=== PATIENT | male | born 1980 | race Caucasian/White ===

== ENCOUNTER 2018-08-30 15:41 | Emergency (ER) | payer SELFPAY ==
[2018-08-30 15:53] VITALS: BP 109/66; PULSE 82; RESP 16; TEMP 37; O2SAT 98
[2018-08-30] MEDS: Cephalexin 500 MG CAP PO (17:05)
[2018-08-30] MEDS: Sulfameth/Trimeth DS TAB 1 TAB PO (17:05)
--- NOTE | 2018-08-30 17:07 | NUR.NOTE ---
patient medicated per N/P order Nursing Note:
--- NOTE | 2018-08-30 17:27 | ED.GENADUL_ITS ---
Discharge Plan Disposition Patient Disposition: HOME Condition: Good Discharge Details Chief Complaint: Cellulitis Clinical Impression: Cellulitis of forearm, left Reason For Visit: infected arm Primary Care Provider: None,None ED Provider: Yousif Honeycutt Home Meds and New Rx's Prescriptions: New sulfamethoxazole-trimethoprim [Bactrim DS] 800-160 mg tablet 2 tab PO DAILY 10 Days Qty: 20 RF: 0 cephalexin 500 mg capsule 500 mg PO QID Qty: 40 RF: 0 Continue methadone 10 mg/mL Solution 85 mg RF: 0 Discharge Instructions Instructions: Cellulitis (ED) Additional Instructions: Please take your antibiotics as prescribed and until fully complete, do not save any antibiotics. Watch for any rapid signs of worsening condition such as fever chills, vomiting, significant increase in pain or spread of redness. If these occur he should return immediately to the emergency department. Otherwise you should follow-up with the emergency department or your primary care provider for reassessment in the next 48 hours. You may continue to use [id number] acetaminophen or Motrin as needed for pain. Referrals: Kyle Meléndez [ NON-[facility] STAFF PHYSICIAN] - 2 days (for reassessment) Discharge Data Discharge Date/Time-TO BE ENTERED AT DEPARTURE: 08/30/18 17:56 Medical Decision Making Left forearm cellulitis. Significant induration. Patient started on Keflex Bactrim and encouraged to return in 48 hours to emergency department for reevaluation or if able to get a primary care follow-up in 48 hours to follow- up with PCP. Patient otherwise stable, afebrile with normal vital signs I do not feel that labs are warranted at this time. Bedside ultrasound utilized to visualize tissue and shows what I interpret as significant tissue edema without significant findings of abscess. Patient including states understanding to return and to take antibiotics as prescribed. After discussion of diagnosis and plan of care patient has no further needs, questions, or concerns and states clear understanding to return to the emergency department for any worsening symptoms. HPI General Mode of arrival: ambulatory . Date/Time Provider Initiated Documentation: 08/30/18 16:15 . Limitations to Documentation: no limitations . Information obtained by: patient and RN notes reviewed . History of Present Illness 38 year old M presents to the emergency department with the chief complaint of left arm infection, described as severe, with intensity rated at 9. Quality is described as aching and sharp, and is localized to the left and upper extremity. Patient started experiencing this day(s) (4) and it has been constant. No relieving factors improve symptom(s), No exacerbating factors reported . Patient notes no other symptoms.. Patient did receive the following treatments prior to arrival, none Related Data Home Medications Medication Instructions Recorded Confirmed cephalexin 500 mg PO QID #40 cap 08/30/18 methadone 85 mg 08/30/18 sulfamethoxazole-trimethoprim 2 tab PO DAILY 10 Days #20 tab 08/30/18 [Bactrim DS] Previous Rx's Medication Instructions Recorded cephalexin 500 mg PO QID #40 cap 08/30/18 sulfamethoxazole-trimethoprim 2 tab PO DAILY 10 Days #20 tab 08/30/18 [Bactrim DS] Allergies Allergy/AdvReac Type Severity Reaction Status Date / Time No Known Allergies Allergy Unverified 08/30/18 15:57 General Stated Complaint: Cellulitis HAILEY: 3 Review of Systems Constitutional Denies body ache(s), Denies chills and Denies fever(s) Cardiovascular Denies chest pain and Denies dyspnea Respiratory Denies dyspnea Gastrointestinal Denies abdominal pain, Denies nausea and Denies vomiting Integumentary/Breasts Reports as per HPI, Reports erythema and Reports skin pain Neurologic Denies confusion and Denies sensory deficit Psychiatric Denies confusion [facility] Social History Smoking/Tobacco Use Status: Current every day Social History Smoking/Tobacco Use Status: Current every day Exam Const General: cooperative, no acute distress and not ill appearing Orientation: alert, awake and oriented x3 HENMT Mouth: moist mucous membranes Resp Effort & Inspection: normal respiratory effort, able to speak in complete sentences and no respiratory distress Cardio Rate: regular rate Rhythm: regular rhythm Neuro General: alert, awake, oriented x3, moves all extremities and no focal motor deficits Sensory Exam: no sensory deficits noted Extrem General: normal exam except as noted Left upper extremity: elbow/forearm Details: abnormal to inspection Details: erythema (Significant erythema and induration noted to dorsal aspect of forearm. No fluctuance noted) Course Vital Signs Temperature 37 C 08/30/18 15:53 Pulse 82 08/30/18 15:53 Respiratory Rate 16 08/30/18 15:53 Blood Pressure 109/66 12/12/18 15:53 Pulse Oximetry 98 12/12/18 15:53 Temperature 37 C 08/30/18 15:53 Temperature Source Temporal Artery Scan 08/30/18 15:53 Pulse 82 08/30/18 15:53 Respiratory Rate 16 08/30/18 15:53 Blood Pressure 109/66 08/30/18 15:53 Blood Pressure Position Sitting 08/30/18 15:53 Pulse Oximetry 98 08/30/18 15:53 Oxygen Delivery Method Room Air 08/30/18 15:53 Oxygen Flow Rate 0 08/30/18 15:53 Pain Level 9 08/30/18 15:53
== END 2018-08-30 17:56 | disposition home or self-care (01) ==
LOC: ER 17:54
PROVIDERS: Emergency Provider Nurse Practitioner Family
DX: L03.114 Cellulitis of left upper limb (principal)
CPT/HCPCS: 99283

== ENCOUNTER 2018-09-03 16:32 | Emergency (ER) | payer OTHER, SELFPAY ==
[2018-09-03 16:45] VITALS: BP 140/70; PULSE 93; RESP 18; TEMP 36.3; O2SAT 99
--- NOTE | 2018-09-03 17:21 | W.ED.GENAD ---
Discharge Plan Disposition Patient Disposition: AGAINST MEDICAL ADVICE Discharge Details Chief Complaint: Cellulitis Clinical Impression: Abscess of forearm, left Reason For Visit: arm swelling Primary Care Provider: None,None ED Provider: Tejas Palmer Home Meds and New Rx's Prescriptions: No Action methadone 10 mg/mL Solution 85 mg RF: 0 sulfamethoxazole-trimethoprim [Bactrim DS] 800-160 mg tablet 2 tab PO DAILY 10 Days Qty: 20 RF: 0 cephalexin 500 mg capsule 500 mg PO QID Qty: 40 RF: 0 Discharge Instructions Instructions: Against Medical Advice (ED) Additional Instructions: You are leaving against medical advice. Please return to the ER at any time for further care. Referrals: Irish Olsen MD [ [facility] STAFF PHYSICIAN] - Medical Decision Making 38-year-old male prior IV drug user, recently diagnosed with cellulitis of his left forearm and being treated with Bactrim and Keflex, returns with focal swelling and fluctuance. Afebrile and nonseptic appearing. No findings of compartment syndrome. Neurovasc intact distally. Bedside [id number] ultrasound was performed by me: Large deep abscess of the proximal to mid left forearm with some loculations. Given the depth and size of abscess, I contacted general surgery to evaluate the patient. Dr. Emery noted that she would evaluate as soon as possible but was performing a surgical procedure. I informed the patient that Dr. Emery would begin to evaluate as soon as possible but it would likely be delayed for an hour. 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 I specifically explained that he may have life threatening or lifestyle modifying disease that would worsen should he leave now AGAINST MEDICAL ADVICE. I explained that the quickest way to get this treated would be to wait for Dr. Emery. Patient verbalized understanding of my concern. Patient has decision-making capacity. He refused to wait for further treatment but noted that he would return as soon as possible tonight. I called the patient after he left and advised him to maintain n.p.o. status in case surgery is needed tonight. HPI General Mode of arrival: ambulatory. Date/Time Provider Initiated Documentation: 09/03/18 17:00. Limitations to Documentation: no limitations. Information obtained by: patient. HPI Narrative: 38yo m with history of prior IV drug use now on methadone here with chief complaint of swollen forearm. Patient was here in the emergency department on 08/30/2018 with chief complaint of left arm infection. Significant induration was noted. Bedside [id number]-[id number] ultrasound did not reveal any fluid collection. He was discharged on Keflex and Bactrim which she has been taking as prescribed. Over the past 4 days, the redness has decreased but he is noticed more focal swelling localized to medial proximal forearm. Area feels more full than it did a few days ago. It is tender to the touch. He denies associated numbness or tingling of the hand. No fevers. Related Data Home Medications Medication Instructions Recorded Confirmed cephalexin 500 mg PO QID #40 cap 08/30/18 09/03/18 methadone 85 mg 08/30/18 sulfamethoxazole-trimethoprim 2 tab PO DAILY 10 Days #20 tab 08/30/18 09/03/18 [Bactrim DS] Previous Rx's Medication Instructions Recorded cephalexin 500 mg PO QID #40 cap 08/30/18 sulfamethoxazole-trimethoprim 2 tab PO DAILY 10 Days #20 tab 08/30/18 [Bactrim DS] Allergies Allergy/AdvReac Type Severity Reaction Status Date / Time No Known Allergies Allergy Unverified 08/30/18 15:57 General Stated Complaint: Cellulitis HAILEY: 3 Review of Systems Constitutional Denies chills and Denies fever(s) Integumentary/Breasts Reports as per HPI Neurologic Reports as per [facility] Medical History IVDU (intravenous drug user) (Resolved) Osteomyelitis (Resolved) Social History Smoking/Tobacco Use Status: Current every day Exam Const General: cooperative and no acute distress [facility] Mouth: moist mucous membranes Eyes Conjunctivae: normal conjunctivae Sclera: normal sclerae Cardio Rate: regular rate and not tachycardic Rhythm: regular rhythm Skin General skin exam: erythema (left forearm improved significantly from piror marked border) Neuro General: alert, awake, oriented x3 and tone normal Extrem Left upper extremity: elbow/forearm (proximal to mid forearm with focal swelling medially, tender and fluctuant), wrist (pain in forearm with hyperextension ) and hand Details: neurosensory exam normal Course Vital Signs Temperature 36.3 C L 09/03/18 16:45 Pulse 93 H 09/03/18 16:45 Respiratory Rate 18 09/03/18 16:45 Blood Pressure 140/70 09/03/18 16:45 Pulse Oximetry 99 09/03/18 16:45 Temperature 36.3 C L 09/03/18 16:45 Temperature Source Temporal Artery Scan 09/03/18 16:45 Pulse 93 H 09/03/18 16:45 Respiratory Rate 18 09/03/18 16:45 Respiratory Effort Accessory Muscle Use 09/03/18 16:48 Blood Pressure 140/70 09/03/18 16:45 Blood Pressure Position Supine 09/03/18 16:45 Pulse Oximetry 99 09/03/18 16:45 Oxygen Delivery Method Room Air 09/03/18 16:45 Oxygen Flow Rate 0 09/03/18 16:45 Pain Level 6 09/03/18 16:45
--- NOTE | 2018-09-03 17:44 | ED.GENADUL_ITS ---
Discharge Plan Disposition Patient Disposition: AGAINST MEDICAL ADVICE Discharge Details Chief Complaint: Cellulitis Clinical Impression: Abscess of forearm, left Reason For Visit: arm swelling Primary Care Provider: None,None ED Provider: Tejas Palmer Home Meds and New Rx's Prescriptions: No Action methadone 10 mg/mL Solution 85 mg RF: 0 sulfamethoxazole-trimethoprim [Bactrim DS] 800-160 mg tablet 2 tab PO DAILY 10 Days Qty: 20 RF: 0 cephalexin 500 mg capsule 500 mg PO QID Qty: 40 RF: 0 Discharge Instructions Instructions: Against Medical Advice (ED) Additional Instructions: You are leaving against medical advice. Please return to the ER at any time for further care. Referrals: Irish Olsen MD [ [facility] STAFF PHYSICIAN] - Medical Decision Making 38-year-old male prior IV drug user, recently diagnosed with cellulitis of his left forearm and being treated with Bactrim and Keflex, returns with focal swelling and fluctuance. Afebrile and nonseptic appearing. No findings of compartment syndrome. Neurovasc intact distally. Bedside ojbkb-[id number]-lecc ultrasound was performed by me: Large deep abscess of the proximal to mid left forearm with some loculations. Given the depth and size of abscess, I contacted general surgery to evaluate the patient. Dr. Emery noted that she would evaluate as soon as possible but was performing a surgical procedure. I informed the patient that Dr. Emery would begin to evaluate as soon as possible but it would likely be delayed for an hour. 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 I specifically explained that he may have life threatening or lifestyle modifying disease that would worsen should he leave now AGAINST MEDICAL ADVICE. I explained that the quickest way to get this treated would be to wait for Dr. Emery. Patient verbalized understanding of my concern. Patient has decision- making capacity. He refused to wait for further treatment but noted that he would return as soon as possible tonight. I called the patient after he left and advised him to maintain n.p.o. status in case surgery is needed tonight. HPI General Mode of arrival: ambulatory . Date/Time Provider Initiated Documentation: 09/03/18 17:00 . Limitations to Documentation: no limitations . Information obtained by: patient . HPI Narrative: 38yo m with history of prior IV drug use now on methadone here with chief complaint of swollen forearm. Phyllis ent was here in the emergency department on 08/30/2018 with chief complaint of left arm infection. Significant induration was noted. Bedside xtwaf-gu-zzhi ultrasound did not reveal any fluid collection. He was discharged on Keflex and Bactrim which she has been taking as prescribed. Over the past 4 days, the redness has decreased but he is noticed more focal swelling localized to medial proximal forearm. Area feels more full than it did a few days ago. It is tender to the touch. He denies associated numbness or tingling of the hand. No fevers. Related Data Home Medications Medication Instructions Recorded Confirmed cephalexin 500 mg PO QID #40 cap 08/30/18 09/03/18 methadone 85 mg 08/30/18 sulfamethoxazole-trimethoprim 2 tab PO DAILY 10 Days #20 tab 08/30/18 09/03/18 [Bactrim DS] Previous Rx's Medication Instructions Recorded cephalexin 500 mg PO QID #40 cap 08/30/18 sulfamethoxazole-trimethoprim 2 tab PO DAILY 10 Days #20 tab 08/30/18 [Bactrim DS] Allergies Allergy/AdvReac Type Severity Reaction Status Date / Time No Known Allergies Allergy Unverified 08/30/18 15:57 General Stated Complaint: Cellulitis HAILEY: 3 Review of Systems Constitutional Denies chills and Denies fever(s) Integumentary/Breasts Reports as per HPI Neurologic Reports as per [facility] Medical History IVDU (intravenous drug user) (Resolved) Osteomyelitis (Resolved) Social History Smoking/Tobacco Use Status: Current every day Exam Const General: cooperative and no acute distress [facility] Mouth: moist mucous membranes Eyes Conjunctivae: normal conjunctivae Sclera: normal sclerae Cardio Rate: regular rate and not tachycardic Rhythm: regular rhythm Skin General skin exam: erythema (left forearm improved significantly from piror marked border) Neuro General: alert, awake, oriented x3 and tone normal Extrem Left upper extremity: elbow/forearm (proximal to mid forearm with focal swelling medially, tender and fluctuant), wrist (pain in forearm with hyperextension ) and hand Details: neurosensory exam normal Course Vital Signs Temperature 36.3 C L 09/03/18 16:45 Pulse 93 H 09/03/18 16:45 Respiratory Rate 18 09/03/18 16:45 Blood Pressure 140/70 09/03/18 16:45 Pulse Oximetry 99 09/03/18 16:45 Temperature 36.3 C L 09/03/18 16:45 Temperature Source Temporal Artery Scan 09/03/18 16:45 Pulse 93 H 09/03/18 16:45 Respiratory Rate 18 09/03/18 16:45 Respiratory Effort Accessory Muscle Use 09/03/18 16:48 Blood Pressure 140/70 09/03/18 16:45 Blood Pressure Position Supine 09/03/18 16:45 Pulse Oximetry 99 09/03/18 16:45 Oxygen Delivery Method Room Air 09/03/18 16:45 Oxygen Flow Rate 0 09/03/18 16:45 Pain Level 6 09/03/18 16:45
== END 2018-09-03 17:27 | disposition left against medical advice (07) ==
LOC: ER 17:29
PROVIDERS: Emergency Provider Student in an Organized Health Care Education/Training Program
DX: L02.414 Cutaneous abscess of left upper limb (principal); Z53.29 Procedure and treatment not carried out because of patient's decision for other reasons
CPT/HCPCS: 99282

== ENCOUNTER 2018-09-03 20:40 | Emergency (ER) | payer OTHER, SELFPAY ==
[2018-09-03 20:44] VITALS: BP 141/74; PULSE 89; RESP 18; TEMP 37.1; O2SAT 99
--- NOTE | 2018-09-03 20:47 | ED.GENADUL_ITS ---
Discharge Plan Disposition Patient Disposition: HOME Condition: Good Discharge Details Chief Complaint: Recheck Clinical Impression: Abscess of arm, left Primary Care Provider: None,None ED Provider: Eric Hines Home Meds and New Rx's Prescriptions: No Action methadone 10 mg/mL Solution 85 mg RF: 0 sulfamethoxazole-trimethoprim [Bactrim DS] 800-160 mg tablet 2 tab PO DAILY 10 Days Qty: 20 RF: 0 cephalexin 500 mg capsule 500 mg PO QID Qty: 40 RF: 0 Discharge Instructions Instructions: Abscess (ED) Additional Instructions: Please continue taking your antibiotic that was prescribed to you. Take the Keflex and the Bactrim every day as directed. Please contact Dr. Nathan's offic e for close follow-up in the next 48 hours. If you notice any worsening of your symptoms, or any new symptoms such as vomiting, diarrhea, fever, chills, pain in your arm, and shortness of breath, chest pain, numbness, weakness, or fainting , please return immediately to the emergency department for reevaluation. Please follow up with your primary care provider as soon as possible for reassessment and reevaluation. As always, it was a pleasure participating in your medical care today. Dr. Nathan's Referrals: Anuj Moore DO [ [facility] STAFF PHYSICIAN] - Medical Decision Making This is a pleasant 38-year-old male who presents for evaluation of an abscess on the patient's left forearm. He has been on Keflex and Bactrim on an outpatient basis, but has had notable improvement of the redness and notable worsening of the swelling. He has been taking the medication as directed. Physical exam now demonstrates no signs of compartment syndrome however he demonstrates a notable fluid collection that is 11 x 8 cm on his left dominant forearm. Because of the size as well as the notable depth with no evidence of a fluctuant head, we did contact surgery for evaluation. They will come evaluate the patient here in the emergency department. We will keep him n.p.o. at this time. The patient's tetanus is up-to-date. 11:40 PM Patient's laboratory workup has returned and does show evidence of mild leukocytosis with a white count of 13.3, however no evidence of bandemia. The remainder of his laboratory workup is normal. Vital signs remain consistently stable with no tachycardia or fever. We did have Dr. Emery, and assessed the patient. She agreed to drain the abscess. The patient had the abscess incised and drained by Dr. Emery, a notable amount of purulent discharge was removed. Wound fluid cultures were sent. Dr. Emery did place a drain, and wrapped it. I discussed changing antibiotics, and Dr. Emery recommends at this time continuing the Bactrim and Keflex as the patient has had notable improvement of the redness on this, just not improvement of the abscess itself. With incision and drainage being the primary modality for treatment of this I think maintaining his current antibiotics is certainly reasonable. With his reassuring vital signs patient will be discharged home with extremely close follow-up with Dr. Nathan on an outpatient basis. Patient's pain is well controlled and he is feeling much better after the drainage. We discussed red flags for which to immediately re turn and the patient understands. I have extensively reviewed the treatment plan and discharge instructions with the patient. I have addressed all patient concerns at this time. The patient was made aware of what symptoms to monitor for that would warrant a return to the emergency department. Discussed the plan with the patient, they demonstrate verbal understanding and agreement with our assessment and plan at this time. HPI General Date/Time Provider Initiated Documentation: 09/03/18 20:45 . HPI Narrative: This is a 38-year-old man with history of prior IV drug use now on methadone here with chief complaint of a left swollen forearm. He is left-hand dominant. Patient was here in the emergency department on 08/30/2018 with chief complaint of left arm infection. Significant induration was noted. Bedside zgnah-zc-cuha ultrasound did not reveal any fluid collection. He was discharged on Keflex and Bactrim which she has been taking as prescribed. Over the past 4 days, the redness has decreased but he is noticed more focal swelling localized to medial proximal forearm. Area feels more full than it did a few days ago. It is tender to the touch. The patient was here earlier today but left AGAINST MEDICAL ADVICE because he was unable to wait for the surgeon due to a need for his to have a car. His come back now has he has been able to drop the car off with his . He does admit to one episode of very brief tingling in his fingers, however this is resolved and is no longer present. He denies any systemic fevers or chills. Patient does have a history of IV drug use, and states that he usually only uses once per month, and always uses in his right arm because he is left arm dominant. The patient denies any trauma, cuts, or recent dental procedures. He denies any other complaints at this time. He denies any modifying factors. Related Data Home Medications Medication Instructions Recorded Confirmed cephalexin 500 mg PO QID #40 cap 08/30/18 09/03/18 methadone 85 mg 08/30/18 sulfamethoxazole-trimethoprim 2 tab PO DAILY 10 Days #20 tab 08/30/18 09/03/18 [Bactrim DS] Previous Rx's Medication Instructions Recorded cephalexin 500 mg PO QID #40 cap 08/30/18 sulfamethoxazole-trimethoprim 2 tab PO DAILY 10 Days #20 tab 08/30/18 [Bactrim DS] Allergies Allergy/AdvReac Type Severity Reaction Status Date / Time No Known Allergies Allergy Unverified 09/03/18 20:51 General HAILEY: 3 Review of Systems Review of Systems All systems reviewed & are unremarkable except as noted in HPI and below PFSH Medical History IVDU (intravenous drug user) (Resolved) Osteomyelitis (Resolved) Social History Smoking/Tobacco Use Status: Current every day Exam Narrative Exam Narrative: 1.Const: Well-nourished, Well-developed, appearing stated age 2.Eyes: PERRL, no conjunctival injection, and symmetrical lids. 3.ENT: Atraumatic external nose and ears. Moist MM. Neck: Symmetric, trachea midline, No thyromegaly. 4.CVS: +S1/S2, No murmurs or gallops. Peripheral pulses 2+ and equal in all extremities. Brisk capillary refill in all extremities. 5.RESP: Unlabored respiratory effort. Clear to auscultation bilaterally. No wheezes rales or rhonchi 6.GI: Soft, Nontender/Nondistended, No hepatosplenomegaly. No guarding or rebound. 7.MSK: Normocephalic/Atraumatic, Extremities w/o deformity. No cyanosis or clubbing, symmetrically palpable radial and ulnar pulses. Capillary refill <2 seconds to all digits. Intact sensation to light touch of the radial, median and ulnar nerves demonstrated by testing in the dorsal web space of the thumb, the distal palmar aspect of the index finger, and the lateral surface of the fifth finger. 2 point discrimination intact to 5mm (up to 6mm can be normal in digits 3-5) of discrimination in the affected digit. Intact motor function of the radial, median and ulnar nerves demonstrated by strength of extension of the isolated distal joint of the index finger, hand ski tow operator, and spreading of the 2nd through 5th digits. Intact recurrent median nerve as demonstrated by ability to move thumb fully through opposition, abduction and flexion. Worsening of forearm pain with flexion and extension of the wrist. The patient's left forearm does demonstrate notable induration over the forearm itself, minimal redness. No focal point though. Some fluctuance is palpable throughout, be dside portable limited ultrasound does demonstrate an area of fluid collection 11 cm long by 8 cm wide in his forearm. Palpation of the forearm demonstrates still softness of the compartments. No clinical evidence of compartment syndrome at this time. No evidence of track foreman or other lesions. 8.Skin: Warm, Dry. No rashes or lesions. 9.Neuro: room service supervisor II-XII grossly intact. Sensation grossly intact, no focal neurologic deficits. 10.Psych: (AAO) x3. Appropriate mood and affect
[2018-09-03 21:37] LABS: Abs Immature Grans 0.02 k/cumm (0.0-0.09); Absolute Basophil Count 0.04 k/cumm (0.0-0.2); Absolute Neutrophil Count 8.73 k/cumm (1.2-6.7); Basophils % 0.3; Eosinophils % 1.9; HCT 35.8 % (40.0-50.0); HGB 12.2 g/dL (13.5-17.5); Immature Grans % 0.1; Lymphocytes % 21.1; Mean Corp. HGB Concentration 34.1 g/dL (32.0-36.0); Mean Corpuscular Hemoglobin 29.4 pg (27.0-33.0); Mean Corpuscular Volume 86.3 fL (80-95); Mean Platelet Volume 9.7 fL (8.0-11.0); Monocytes % 11.4; Neutrophils % 65.2; Platelet Count 246 x1000/uL (130-400); RBC 4.15 m/cumm (4.50-6.00); RBC Distribution Width 13.6 % (11.8-14.1); White Blood Cell Count 13.39 k/cumm (4.4-10.8)
[2018-09-03 21:41] LABS: Absolute Eosinophil Count 0.25 k/cumm (0.0-0.7); Absolute Lymphocyte Count 2.83 k/cumm (1.2-3.4); Absolute Monocyte Count 1.53 k/cumm (0.11-0.7)
[2018-09-03] MEDS: ACETAMINOPHEN 1,000 MG/100 ML BTL 400 MG IVPB (21:41)
[2018-09-03] MEDS: Ketorolac 30 MG/ML VIAL IVP (21:42)
[2018-09-03 21:53] LABS: Diff Comment Diff Reviewed; RBC Morphology Normal
[2018-09-03 21:55] LABS: ALT 26 U/L (12-78); AST 20 U/L (15-37); Albumin 3.5 g/dL (3.4-5.0); Alkaline Phosphatase 72 U/L (46-116); Anion Gap 8.2 mmol/L (3-11); BUN 11 mg/dL (7-18); Bilirubin, Total 0.3 mg/dL (0.2-1.0); CO2 25.8 mmol/L (21.0-32.0); CREATININE 0.81 mg/dL (0.70-1.30); Calcium 8.4 mg/dL (8.5-10.1); Chloride 99 mmol/L (98-107); Glucose 92 mg/dL (70-100); Potassium 3.9 mmol/L (3.5-5.1); Sodium 133 mmol/L (136-145); Total Protein 7.4 g/dL (6.4-8.2)
[2018-09-03] MEDS: Lidocaine 1% Multi-Dose 50 ML VIAL (23:21)
[2018-09-03 23:52] VITALS: BP 127/76; PULSE 70; RESP 16; TEMP 37.1; O2SAT 99
--- NOTE | 2018-09-03 23:53 | NUR.NOTE ---
Nursing Note: assist provider, Dr. Emery with I&D of left forearm. Consents were signed in room prior to procedure.
--- NOTE | 2018-09-03 23:57 | W.SURGCON ---
Date of service: 09/03/18 Time of Service: 23:57 Assessment and Plan (1) Abscess of left forearm: Current visit: Yes Status: Acute 38 y/o male with a left forearm abscess on exam and bedside ultrasound in the ED. Edema of surrounding soft tissue also noted on ultrasound. Discussed with patient needle aspiration to confirm abscess vs. seroma. Patient agreeable and verbal consent obtained. Skin prepped with alcohol pad and needle aspiration with 22 gauge needle performed over most fluctuant area. Three cc of cream-colored pus aspirated and sent for culture. We then discussed proceeding with incision and drainage under local anesthesia. Risks, benefits, and alternatives discussed with patient and informed consent obtained prior to proceeding. Bloody fluid mixed with pus was drained. The cavity was noted to track ~ 4 cm deep. Visible soft tissue in the wound appeared viable. Cavity copiously irrigated with saline until the return was clear. A quarter inch Yuliya drain was inserted and secured to the skin edges with interrupted 2-0 nylon. Dry gauze dressing applied. Patient tolerated well with no immediate complications. See procedure notes. Recommend finish prescribed course of Keflex and Bactrim. Await wound cultures. Follow-up with surgery this week. Patient seen and discussed with Dr. Hines in the ED. History of Present Illness Chief Complaint: Left forearm abscess Narrative: 38 y/o male who had been seen in the ED at [facility] on 08/30/18 for left forearm cellulitis. Patient notes that he had redness and swelling of his left forearm which began ~ 10 days ago and progressively worsened. Bedside ultrasound in the ED on 08/30/18 demonstrated soft tissue edema but no abscess. He was discharged on Keflex and Bactrim and instructed to follow-up in 48 hours. Patient denies any fevers or chills. He denies any h/o injury, bug bite, or IVDA in that arm. 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 Redness significantly improved on oral antibiotics but swelling and pain persisted. Ultrasound in the ED today demonstrated a large fluid collection consistent with abscess that appeared to be deep. Surgical consultation requested for I&D. Review of Systems Review of Systems All systems reviewed & are unremarkable except as noted in HPI and below Constitutional Denies chills and Denies fever(s) Cardiovascular Denies chest pain and Denies rapid heart rate Integumentary/Breasts Reports erythema, Reports skin pain and Reports skin swelling [facility] Medical History IVDU (intravenous drug user) (Resolved) Osteomyelitis (Resolved) Social History Smoking/Tobacco Use Status: Current every day Exam Const General: cooperative, comfortable, no acute distress and well developed Nutritional Appearance: well nourished Orientation: alert and oriented x3 HENMT Head: normocephalic and atraumatic Resp Effort & Inspection: normal respiratory effort and able to speak in complete sentences Skin General skin exam: erythema (mild lateral left forearm), fluctuance (lateral left forearm) and induration (lateral left forearm) Neuro General: alert and oriented x3 Speech: speech normal Gait: normal gait Psych Appearance: grossly normal Mental Status: mental status grossly normal Mood: congruent mood Affect: normal affect Results Last Vital Signs Temp 37.1 C 09/03/18 23:52 Pulse 70 09/03/18 23:52 Resp 16 09/03/18 23:52 BP 127/76 09/03/18 23:52 Pulse Ox 99 09/03/18 23:52 Labs : 09/03/18 21:15 09/03/18 21:15 Laboratory Results - last 24 hr 09/03/18 09/03/18 21:15 21:15 WBC 13.39 H RBC 4.15 L Hgb 12.2 L Hct 35.8 L MCV 86.3 MCH 29.4 MCHC 34.1 RDW 13.6 Plt Count 246 MPV 9.7 Immature Gran % 0.1 Neutrophils % 65.2 Lymphocytes % 21.1 Monocytes % 11.4 Eosinophils % 1.9 Basophils % 0.3 Absolute Neutrophils 8.73 H Absolute Lymphocytes 2.83 Absolute Monocytes 1.53 H Absolute Eosinophils 0.25 Absolute Basophils 0.04 Differential Comment Diff reviewed RBC Morphology Normal Sodium 133 L Potassium 3.9 Chloride 99 Carbon Dioxide 25.8 Anion Gap 8.2 BUN 11 Creatinine 0.81 Estimated GFR/1.73 m2 >= 60.00 Glucose 92 Calcium 8.4 L Total Bilirubin 0.3 AST 20 ALT 26 Alkaline Phosphatase 72 Total Protein 7.4 Albumin 3.5 Procedures Abscess I/D Site: upper extremity (left forearm) Side (if applicable): left Sedation/analgesia: none Anesthetic used: lidocaine 1% (7 cc) Technique: needle aspiration and incised with #11 blade Amount of fluid (mL): 10 Irrigation: Yes (saline) Packing used?: yuliya drain (1/4 [place] drain, sutured in place with 2-0 nylon)
== END 2018-09-03 23:53 | disposition home or self-care (01) ==
PROVIDERS: Emergency Provider Student in an Organized Health Care Education/Training Program
DX: L02.414 Cutaneous abscess of left upper limb (principal)
CPT/HCPCS: 10060; 36415; 80053; 87040; 87077; 96361; 96374; 96375; 99253; 99284; 85025; 87070; 87186; 87205; J0131; J1885

== ENCOUNTER 2020-09-04 20:16 | Outpatient (REF) | payer MEDICAID, SELFPAY ==
[2020-09-04 21:10] LABS: HCT 45.4 % (40.0-50.0); HGB 14.7 g/dL (13.5-17.5); MCH 30.1 pg (27.0-33.0); MCHC 32.4 % (32.0-36.0); MPV 9.6 fL (8.0-11.0); Platelet Count 377 10^3/uL (130-400); RBC 4.88 10^6/uL (4.36-5.78); RDW 12.1 % (11.8-14.1); WBC 10.62 10^3/uL (4.4-10.8)
[2020-09-04 21:29] LABS: ALT 56 U/L (16-63); AST 31 U/L (15-37); Alkaline Phosphatase 108 U/L (46-116); Anion Gap 5.7 mmol/L (3-11); BUN 13 mg/dL (7-18); Bilirubin, Total 0.2 mg/dL (0.2-1.0); CO2 29.3 mmol/L (21.0-32.0); CREATININE 0.85 mg/dL (0.70-1.30); Calcium 8.7 mg/dL (8.5-10.1); Calculated LDL 117 mg/dL (<100); Chloride 101 mmol/L (98-107); Cholesterol 189 mg/dL (<200); Glucose 85 mg/dL (74-106); HDL Cholesterol 53 mg/dL (40-60); Potassium 4.8 mmol/L (3.5-5.1); Sodium 136 mmol/L (136-145); Total Protein 8.3 g/dL (6.4-8.2); Triglyceride 95 mg/dL (<150)
[2020-09-05 18:00] LABS: CRP, High Sensitivity >15.00 mg/L (See Note)
[2020-09-08 10:50] LABS: Hepatitis C Ab w Rflx HCV PCR Reactive (Negative)
[2020-09-09 19:13] LABS: HCV Genotype 2 (Undetected)
[2020-09-10 12:58] LABS: HCV RNA Qualitative Detected (Undetected)
== END 2020-09-04 20:36 ==
LOC: NCHCN 20:16
PROVIDERS: PCP Internal Medicine; Visit Provider Internal Medicine
DX: R07.89 Other chest pain (principal); B19.20 Unspecified viral hepatitis C without hepatic coma; G47.33 Obstructive sleep apnea (adult) (pediatric); E66.3 Overweight
CPT/HCPCS: 80053; 80061; 85027; 86141; 86803; 87522; 84443; 87521

== ENCOUNTER 2020-10-15 17:45 | Outpatient (REF) | payer MEDICAID, SELFPAY ==
[2020-10-15 20:39] LABS: HGB 13.8 g/dL (13.5-17.5); MCHC 32.9 % (32.0-36.0); MCV 88.2 fL (80-95); MPV 9.6 fL (8.0-11.0); Platelet Count 295 10^3/uL (130-400); RBC 4.76 10^6/uL (4.36-5.78); RDW 12.7 % (11.8-14.1); RDW-SD 41.2 fL; WBC 9.41 10^3/uL (4.4-10.8)
[2020-10-15 20:54] LABS: C-Reactive Protein 1.77 mg/dL (0.0-0.3)
[2020-10-15 21:28] LABS: ESR 29 mm/hr (0-15)
[2020-10-17 10:29] LABS: Hepatitis B Surface Ag Negative (Negative)
[2020-10-17 11:17] LABS: Hep B Core Antibody Negative (Negative)
[2020-10-17 13:06] LABS: HIV-1/2 Ag & Ab Screen Negative (Negative)
== END 2020-10-15 18:05 ==
LOC: NCHCN 17:45
PROVIDERS: PCP Internal Medicine; Visit Provider Internal Medicine
DX: B19.20 Unspecified viral hepatitis C without hepatic coma (principal); R22.2 Localized swelling, mass and lump, trunk; F17.210 Nicotine dependence, cigarettes, uncomplicated; Z11.4 Encounter for screening for human immunodeficiency virus [HIV]
CPT/HCPCS: 85027; 85652; 86704; 87340; 87389; 86140

== ENCOUNTER 2021-04-15 16:52 | Outpatient (REF) | payer MEDICAID, SELFPAY ==
[2021-04-15 20:47] LABS: ALT 14 U/L (16-63); AST 13 U/L (15-37); Albumin 3.9 g/dL (3.4-5.0); Alkaline Phosphatase 83 U/L (46-116); Bilirubin, Direct 0.1 mg/dL (0.0-0.2); Bilirubin, Total 0.2 mg/dL (0.2-1.0); Total Protein 6.8 g/dL (6.4-8.2)
[2021-04-17 11:17] LABS: Hepatitis C Ab w Rflx HCV PCR Reactive (Negative)
[2021-04-20 14:16] LABS: HCV RNA Qualitative Undetected (Undetected)
== END 2021-04-15 16:53 | disposition home or self-care (01) ==
LOC: NCHCN 16:52
PROVIDERS: PCP Internal Medicine; Visit Provider Internal Medicine
DX: B19.20 Unspecified viral hepatitis C without hepatic coma (principal)
CPT/HCPCS: 80076; 86803; 87522